=== PATIENT | female | born 1970 | race Caucasian/White ===

== ENCOUNTER 2016-10-27 15:15 | Outpatient (RCR) | payer BC | END 2016-12-11 15:43 | disposition home or self-care (01) | LOC: PT 15:15 | PROVIDERS: ATTEND Nurse Practitioner Family | DX: M54.5 Low back pain (principal) | CPT/HCPCS: 97001; 97032; 97035; 97110; 97140; G0283; 97014 ==

== ENCOUNTER 2016-11-16 16:26 | Day surgery (SDC) | payer BC ==
[~2016-11-16] VITALS: Ht 167.6 cm; Wt 60.0 kg
[2016-11-16] VITALS (10 sets, daily range): BP systolic 93–128; BP diastolic 44–74
--- NOTE | 2016-11-16 | NUR ---
Admit to room 318 from OR per bed for post lap appendectomy. Patient awake, but drowsy. Lap incisions dry and intact. Addendum: 11/17/16 at 0206 by Amanda Balderas RN Time to floor was 1856 on 11/16/16
--- NOTE | 2016-11-16 | NUR ---
Blayne for c/o nausea and dizziness. Addendum: 11/17/16 at 0147 by Amanda Balderas RN Time of administration should be 2003 on 11-16-16
[2016-11-16] MEDS ORDERED: BUPIVACAINE/EPINEPHRINE 0.25%-1:200,000 (MARCAINE) 30 ML VIAL INJ ONE (16:30)
[2016-11-16] MEDS ORDERED: PIPERACILLIN/TAZOBACTAM 3.375 GM in SODIUM CHLORIDE 50 ML IV ONE (16:35)
[2016-11-16] MEDS ORDERED: NS FLUSH 3 ML PRN IV (16:35)
[2016-11-16] MEDS ORDERED: oxyCODONE IMMEDIATE RELEASE 5 MG (OXYIR) TAB PO ONE (16:35)
[2016-11-16] MEDS ORDERED: LACTATED RINGERS 1,000 ML IV SCH (16:35)
[2016-11-16] MEDS ORDERED: NS FLUSH 10 ML PRN IV (16:35)
[2016-11-16] MEDS ORDERED: ACETAMINOPHEN 500 MG TAB (TYLENOL) PO ONE (16:35)
[2016-11-16] MEDS ORDERED: ROCURONIUM 50 MG/5 ML (ZEMURON) VIAL IV ONE (17:11)
[2016-11-16] MEDS ORDERED: ALFENTANIL 500 MCG/ML (ALFENTA) 5 ML AMP IV ONE (17:11)
[2016-11-16] MEDS ORDERED: PROPOFOL 20 ML IV ONE (17:11)
[2016-11-16] MEDS ORDERED: ePHEDrine SULFATE 50 MG/ML 1 ML AMP ONE (17:24)
[2016-11-16] MEDS ORDERED: KETOROLAC 60 MG/2 ML (TORADOL) VIAL IM ONE (18:10)
[2016-11-16] MEDS ORDERED: GLYCOPYRROLATE 0.2 MG/ML (ROBINUL) 1 ML VIAL ONE (18:10)
[2016-11-16] MEDS ORDERED: NEOSTIGMINE 1 MG/ML SYRINGE ONE (18:10)
[2016-11-16] MEDS ORDERED: ACETAMINOPHEN 325 MG TAB (TYLENOL) PO PRN (18:25)
[2016-11-16] MEDS ORDERED: morphine INJ 4 MG/ML 1 ML SYRINGE IV PRN (18:25)
[2016-11-16] MEDS ORDERED: ONDANSETRON 2 MG/ML (Z0FRAN) 2 ML VIAL IV PRN (18:25)
[2016-11-16] MEDS: oxyCODONE IMMEDIATE RELEASE 5 MG (OXYIR) TAB PO PRN (20:19)
--- NOTE | 2016-11-16 20:19 | NUR ---
Oxyir for abdominal pain 5/10. Nausea improved.
[2016-11-16] MEDS: LACTATED RINGERS 1,000 ML IV SCH (20:20)
--- NOTE | 2016-11-16 22:49 | NUR ---
Rates pain 7/10, but refuses morphine stating fear of becoming nauseous. Patient states she prefers to wait until pain med is due, but agrees to take tylenol.
--- NOTE | 2016-11-16 23:36 | NUR ---
IV infusion rate changed to 250mls/hr for a one hr bolus per telephone order.
[2016-11-17 00:20] VITALS: BP 99/55
[2016-11-17] MEDS: oxyCODONE IMMEDIATE RELEASE 5 MG (OXYIR) TAB PO PRN ×3 (00:44→09:41)
--- NOTE | 2016-11-17 00:44 | NUR ---
Oxyir for pain 02/01. Denies nausea.
[2016-11-17 01:22] VITALS: BP 97/45
[2016-11-17 04:09] VITALS: BP 98/70
--- NOTE | 2016-11-17 04:55 | NUR ---
Oxyir given for pain 3-02/01. Fresh ice water to patient and container of apple juice. Patient has gotten progressively mobile during shift. Pain has decreased some even with ambulation. Requests SCD's off at this time.
[2016-11-17 07:21] VITALS: BP 99/57
--- NOTE | 2016-11-17 09:41 | NUR ---
PRN OxyIR given at this time for incisional pain rated 5/10. Pt changed into street clothes in preparation for discharge. Skin warm, dry, intact. Resprs nonlabored, even. Incisions well approximated, dry. No redness, s/s infection noted. SL intact. Pt denies needs.
[2016-11-17] MEDS: LACTATED RINGERS 1,000 ML IV SCH (09:53)
--- NOTE | 2016-11-17 10:10 | NUR ---
Reviewed discharge medications with patient. Provided patient handout information for new medication. No additional questions or concerns. Patient verbalized understanding of medications. Clarified with patient that she only takes meloxicam not naproxen also. If develops constipation while taking oxycodone, she may try Senna-S. conducted by Xuan Swift, PharmD Candidate 2017
--- NOTE | 2016-11-17 10:13 | NUR ---
Discharge instructions reviewed with patient and spouse, both demonstrate understanding. SL removed with catheter tip intact. Belongings, DC packet, and script sent with patient. Pt dismissed at this time via w/c accompanied by Jai Reeves FURNITURE REMOVALIST'S ASSISTANT, Indra Obando FURNITURE REMOVALIST'S ASSISTANT, and spouse. Skin warm, dry, intact. Resprs nonlabored, even on RA.
== END 2016-11-17 10:15 | disposition home or self-care (01) ==
LOC: ASC 16:26 → MED/SURG 18:31 → ASC 11-17 10:15
PROVIDERS: ATTEND Surgery
DX: K35.80 Unspecified acute appendicitis (principal); K52.9 Noninfective gastroenteritis and colitis, unspecified; N83.202 Unspecified ovarian cyst, left side; N83.201 Unspecified ovarian cyst, right side; Z86.718 Personal history of other venous thrombosis and embolism
CPT/HCPCS: 44970; J1885; J2405; J2543; J2710; J3490; J7120

== ENCOUNTER → 2016-11-16 | Outpatient (REF) | payer BC ==
[2016-11-16 15:01] LABS: BASOPHILS % (AUTO) 0 % (0-2); EOSINOPHILS # (AUTO) 0.2 10^3uL; EOSINOPHILS % (AUTO) 1 % (0-4); LYMPHOCYTES # (AUTO) 1.8 X10^3; MEAN CORPUSCULAR HEMOGLOBIN 32.6 PG (26.0-34.0); MEAN CORPUSCULAR HGB CONC 35.4 g/dL (31.0-37.0); MEAN CORPUSCULAR VOLUME 92 FL (80-100); MEAN PLATELET VOLUME 9.9 FL (6.0-9.5); MONOCYTES # (AUTO) 1.1 X10^3; MONOCYTES % (AUTO) 7 % (3-11); NEUTROPHILS # (AUTO) 12.5 X10^3; NEUTROPHILS % (AUTO) 80 % (51-67); PLATELET COUNT 214 10^3uL (150-450); WHITE BLOOD COUNT 15.62 10^3uL (4.0-11.0)
[2016-11-16 15:05] LABS: CLARITY,URINE Clear; COLOR,URINE Yellow; GLUCOSE, URINE (UA) Negative (Negative); LEUKOCYTE ESTERASE ,URINE Negative (Negative); PH,URINE 5.5 (5.0 - 8.0); UROBILINOGEN,URINE 0.2 mg/dL (0.2-1.0)
[2016-11-16 15:06] LABS: BILIRUBIN,URINE 1+ (Negative); URINE CENTRIFUGED VOLUME <10mL Unspun
[2016-11-16 15:09] LABS: ALBUMIN 4.2 g/dL (3.4-5.0); ANION GAP 15.3 MEQ/L (3-15); CALCULATED IONIZED CALCIUM 4.1 mg/dL (3.8-4.6); TOTAL PROTEIN 7.3 g/dL (6.4-8.5)
== END ==
LOC: LAB 14:52
PROVIDERS: ATTEND Nurse Practitioner Family
DX: R10.31 Right lower quadrant pain (principal)
CPT/HCPCS: 80053; 81003; 81015; 85025

== ENCOUNTER → 2016-12-04 | Outpatient (CLI) | payer BC ==
[2016-12-04 16:35] VITALS: BP 125/70
== END ==
LOC: MHUC 16:08
PROVIDERS: ATTEND Physician Assistant
DX: H81.10 Benign paroxysmal vertigo, unspecified ear (principal)
CPT/HCPCS: 99213